=== PATIENT | female | born 1945 | race African-American/Black ===

== ENCOUNTER 2022-09-18 12:07 | Inpatient (IN) | payer BC, OTHER ==
[~2022-09-18] VITALS: Ht 152.4 cm; Wt 60.8 kg
[2022-09-18] MEDS ORDERED: ACETAMINOPHEN 650MG SUPP PR STA (12:21)
[2022-09-18] MEDS ORDERED: VANCOMYCIN 1G PREMIX 200 ML IV ONE (12:30)
[2022-09-18] MEDS ORDERED: PIPERACILLIN/TAZ 3.375G PREMIX 50 ML IV ONE (12:30)
[2022-09-18] MEDS ORDERED: SODIUM CHLORIDE 0.9% 1000ML BAG (SEPSIS BOLUS) IV ONE (12:30)
[2022-09-18 13:27] LABS: BASOPHILS % 0.3 % (0.0-2.0); HEMATOCRIT. 35.6 % (36.0-48.0); HEMOGLOBIN. 11.5 g/dL (12.0-16.0); LYMPHOCYTES % 11.8 % (20.0-50.0); MEAN CORPUSCULAR HEMOGLOBIN 30.8 pg (28.0-32.0); MEAN CORPUSCULAR VOLUME 95.7 fL (81.0-99.0); MEAN PLATELET VOLUME 8.6 fl (7.4-10.4); MONOCYTES % 9.9 % (2.0-8.0); PLATELET 174 x1000/uL (130-400); RED BLOOD CELL COUNT 3.72 mill/uL (4.2-5.4); RED CELL DISTRIBUTION WIDTH 14.7 % (11.6-14.6)
[2022-09-18 13:36] LABS: CHLORIDE 112 mEq/L (98-107)
[2022-09-18 13:54] LABS: CLARITY URINE CLEAR (CLEAR); COLOR URINE DARK YELLOW (YELLOW); KETONES URINE NEGATIVE (NEGATIVE); LEUKOCYTE ESTERASE URINE NEGATIVE (NEGATIVE); NITRITE URINE NEGATIVE (NEGATIVE); OCCULT BLOOD URINE 2+ (NEGATIVE); PROTEIN URINE 1+ (NEGATIVE); SPECIFIC GRAVITY URINE 1.029 (1.005-1.030)
[2022-09-18] MEDS ORDERED: PIPERACILLIN/TAZ 3.375G PREMIX 50 ML IV SCH (17:00)
[2022-09-18] MEDS ORDERED: MAGNESIUM/ALUMINUM HYDROXIDE/SIMETHICONE 30ML UDC PO PRN (17:00)
[2022-09-18] MEDS ORDERED: ACETAMINOPHEN 325MG TABLET PO PRN ×2 (17:00)
[2022-09-18] MEDS ORDERED: NA PHOS,M-B/NA PHOS,DI-BA ENEMA 118ML PR PRN (17:00)
[2022-09-18] MEDS ORDERED: NITROGLYCERIN 0.4MG TABLET SL SL PRN (17:00)
[2022-09-18] MEDS ORDERED: ONDANSETRON HCL 4MG/2ML INJ IV PRN (17:00)
[2022-09-18] MEDS ORDERED: KETOROLAC 15MG/ML VIAL IV PRN (17:00)
[2022-09-18] MEDS ORDERED: CLONIDINE 0.1MG TABLET PO PRN (17:00)
[2022-09-18] MEDS ORDERED: IPRATROPIUM/ALBUTEROL 0.5-3(2.5)MG/3ML NEB NEB PRN (17:00)
[2022-09-18] MEDS ORDERED: ZOLPIDEM TARTRATE 5MG TABLET PO PRN (17:00)
[2022-09-18] MEDS ORDERED: DOCUSATE SODIUM 100MG CAPSULE PO PRN (17:00)
[2022-09-18 17:36] LABS: T4 FREE 1.15 ng/dL (0.76-1.46)
[2022-09-18] MEDS: FAMOTIDINE 20MG TABLET PO SCH (17:56)
[2022-09-18] MEDS: ENOXAPARIN 30MG/0.3ML SYR SUBCUT SCH (17:56)
[2022-09-18] MEDS: LACTATED RINGERS 1,000 ML IV SCH ×2 (17:56→23:32)
[2022-09-18 17:58] LABS: VITAMIN B12 SERUM > 2000.0 pg/mL (211-911)
[2022-09-18 20:00] VITALS: BP 159/86
[2022-09-18 21:55] VITALS: BP 159/86
[2022-09-18] MEDS: PIPERACILLIN/TAZOBACTAM 3.375G in DEXT 5% WATER 50ML IV SCH (23:31)
[2022-09-18] MEDS: ASCORBIC ACID 500 MG TABLET PO SCH (23:32)
[2022-09-19] VITALS: BP 166/98
[2022-09-19 01:10] LABS: CREATINE KINASE MB FRACTION 1.2 ng/mL (0.5-3.6)
[2022-09-19] MEDS ORDERED: MEMA10TA55 PO (03:22)
[2022-09-19] MEDS ORDERED: CRES10 (03:22)
[2022-09-19] MEDS ORDERED: BENA10TA74 PO (03:22)
[2022-09-19] MEDS ORDERED: AMLO5TAB88 PO (03:22)
[2022-09-19] MEDS ORDERED: ROSUVASTATIN (03:22)
[2022-09-19 04:00] VITALS: BP 134/86
[2022-09-19] MEDS: PIPERACILLIN/TAZOBACTAM 3.375G in DEXT 5% WATER 50ML IV SCH ×3 (05:04→22:31)
[2022-09-19 06:58] LABS: BASOPHILS % 0.3 % (0.0-2.0); HEMATOCRIT. 37.3 % (36.0-48.0); HEMOGLOBIN. 12.2 g/dL (12.0-16.0); LYMPHOCYTES % 16.7 % (20.0-50.0); MEAN CORPUSCULAR VOLUME 94.7 fL (81.0-99.0); MEAN PLATELET VOLUME 9.2 fl (7.4-10.4); PLATELET 149 x1000/uL (130-400); RED BLOOD CELL COUNT 3.93 mill/uL (4.2-5.4)
[2022-09-19 07:11] LABS: CHLORIDE 107 mEq/L (98-107)
[2022-09-19 07:20] LABS: CREATINE KINASE 148 IU/L (26-192); CREATINE KINASE MB FRACTION < 1.0 ng/mL (0.5-3.6); PHOSPHORUS 3.5 mg/dL (2.5-4.9)
[2022-09-19 08:00] VITALS: BP 134/64
[2022-09-19] MEDS: ASPIRIN 325MG EC TABLET PO SCH (10:38)
[2022-09-19] MEDS: ASCORBIC ACID 500 MG TABLET PO SCH ×2 (10:38→22:30)
[2022-09-19] MEDS: ZINC SULFATE 220 MG ( 50 ) CAPSULE PO SCH (10:38)
[2022-09-19 12:00] VITALS: BP 126/84
[2022-09-19 12:13] LABS: *AMPHETAMINES SCREEN URINE NEGATIVE (NEGATIVE); *BARBITURATES SCREEN URINE NEGATIVE (NEGATIVE); *BENZODIAZEPINES SCREEN URINE NEGATIVE (NEGATIVE); *COCAINE SCREEN URINE NEGATIVE (NEGATIVE); CANNABINOID URINE SCREEN NEGATIVE (NEGATIVE); METHADONE URINE SCREEN NEGATIVE (NEGATIVE); OPIATES URINE SCREEN NEGATIVE (NEGATIVE); PHENCYCLIDINE URINE SCREEN NEGATIVE (NEGATIVE)
[2022-09-19] MEDS: VANCOMYCIN 750MG PREMIX 150 ML IV SCH (13:25)
[2022-09-19] MEDS: LACTATED RINGERS 1,000 ML IV SCH ×2 (13:26→22:31)
[2022-09-19] MEDS ORDERED: ALBUTEROL 6.7GM HFA INHALER ORI PRN (17:00)
[2022-09-19] MEDS: FAMOTIDINE 20MG TABLET PO SCH (17:58)
[2022-09-19] MEDS: ENOXAPARIN 30MG/0.3ML SYR SUBCUT SCH (17:58)
[2022-09-19 20:00] VITALS: BP 146/72
[2022-09-19] MEDS: GUAIFENESIN 600MG ER TABLET PO SCH (22:30)
[2022-09-20] VITALS: BP 132/89
[2022-09-20 04:00] VITALS: BP 109/81
[2022-09-20] MEDS: PIPERACILLIN/TAZOBACTAM 3.375G in DEXT 5% WATER 50ML IV SCH ×3 (06:17→21:44)
[2022-09-20 08:00] VITALS: BP 131/74
[2022-09-20 08:56] LABS: BG BASE EXCESS 2.4 mmol/L (-2.0-2.0); BG CARBOXYHEMOGLOBIN 0.3 % (0.5-1.5); BG DEOXYHEMOGLOBIN 1.2 % (0.0-5.0); BG HCO3 ACT 25.7 mmol/L (22.0-26.0); BG METHEMOGLOBIN 0.4 % (0.0-1.5); BG OXYGEN SATURATION 98.8 % (92.0-98.5); BG OXYHEMOGLOBIN 98.1 % (94.0-97.0); BG PH 7.497 (7.350-7.450); BG PO2 141.5 mmHg (75.0-100.0); BG SAMPLE SITE RIGHT RADIAL; BG TOTAL HEMOGLOBIN 7.3 g/dL (12.0-18.0); BG VENT MODE NASAL CANNULA
[2022-09-20] MEDS: GUAIFENESIN 600MG ER TABLET PO SCH ×2 (09:24→21:44)
[2022-09-20] MEDS: DONEPEZIL HCL 10MG TABLET PO SCH (09:24)
[2022-09-20] MEDS: ZINC SULFATE 220 MG ( 50 ) CAPSULE PO SCH (09:24)
[2022-09-20] MEDS: ASCORBIC ACID 500 MG TABLET PO SCH ×2 (09:25→21:44)
[2022-09-20] MEDS: ASPIRIN 325MG EC TABLET PO SCH (09:25)
[2022-09-20] MEDS: MEMANTINE HCL 10MG TABLET PO SCH ×2 (09:25→21:44)
[2022-09-20] MEDS: LACTATED RINGERS 1,000 ML IV SCH ×2 (09:25→19:00)
[2022-09-20 12:00] VITALS: BP 115/73
[2022-09-20 16:00] VITALS: BP 108/65
[2022-09-20] MEDS: VANCOMYCIN 750MG PREMIX 150 ML IV SCH (16:11)
[2022-09-20] MEDS: ENOXAPARIN 30MG/0.3ML SYR SUBCUT SCH (16:25)
[2022-09-20 20:00] VITALS: BP 126/64
[2022-09-20] MEDS: ATORVASTATIN CALCIUM 20MG TABLET PO SCH (21:44)
[2022-09-20] MEDS: FAMOTIDINE 20MG TABLET PO SCH (21:44)
[2022-09-21] VITALS: BP 141/92
[2022-09-21 04:00] VITALS: BP 128/65
[2022-09-21] MEDS: LACTATED RINGERS 1,000 ML IV SCH ×2 (05:00→15:52)
[2022-09-21] MEDS: PIPERACILLIN/TAZOBACTAM 3.375G in DEXT 5% WATER 50ML IV SCH ×3 (06:00→22:00)
[2022-09-21 08:08] VITALS: BP 122/67
[2022-09-21] MEDS: GUAIFENESIN 600MG ER TABLET PO SCH ×2 (09:16→20:36)
[2022-09-21] MEDS: DONEPEZIL HCL 10MG TABLET PO SCH (09:16)
[2022-09-21] MEDS: ASPIRIN 325MG EC TABLET PO SCH (09:16)
[2022-09-21] MEDS: ZINC SULFATE 220 MG ( 50 ) CAPSULE PO SCH (09:16)
[2022-09-21] MEDS: ASCORBIC ACID 500 MG TABLET PO SCH ×2 (09:16→20:45)
[2022-09-21] MEDS: MEMANTINE HCL 10MG TABLET PO SCH ×2 (09:16→20:35)
[2022-09-21 12:00] VITALS: BP 96/58
[2022-09-21] MEDS: VANCOMYCIN 1G PREMIX 200 ML IV SCH (12:03)
[2022-09-21 13:46] LABS: BG BASE EXCESS 3.4 mmol/L (-2.0-2.0); BG CARBOXYHEMOGLOBIN 0.3 % (0.5-1.5); BG DEOXYHEMOGLOBIN 4.4 % (0.0-5.0); BG FRACTION INSPIRED OXYGEN 21; BG HCO3 ACT 26.6 mmol/L (22.0-26.0); BG METHEMOGLOBIN 0.3 % (0.0-1.5); BG OXYGEN SATURATION 95.6 % (92.0-98.5); BG PCO2 35.6 mmHg (35.0-45.0); BG PH 7.492 (7.350-7.450); BG PO2 74.7 mmHg (75.0-100.0); BG SAMPLE SITE RIGHT BRACHIAL; BG TOTAL HEMOGLOBIN 11.6 g/dL (12.0-18.0); BG VENT MODE ROOM AIR
[2022-09-21 16:18] VITALS: BP 105/57
[2022-09-21] MEDS: FAMOTIDINE 20MG TABLET PO SCH (17:34)
[2022-09-21] MEDS: ENOXAPARIN 30MG/0.3ML SYR SUBCUT SCH (17:34)
[2022-09-21 20:00] VITALS: BP 117/71
[2022-09-21] MEDS: ATORVASTATIN CALCIUM 20MG TABLET PO SCH (20:36)
[2022-09-21] MEDS: GUAIFENESIN 200MG/10ML SUGAR FREE UDC PO PRN (20:45)
[2022-09-22] VITALS: BP 163/94
[2022-09-22] MEDS: LACTATED RINGERS 1,000 ML IV SCH ×3 (01:00→20:01)
[2022-09-22 04:00] VITALS: BP 131/72
[2022-09-22] MEDS: PIPERACILLIN/TAZOBACTAM 3.375G in DEXT 5% WATER 50ML IV SCH ×3 (06:00→20:02)
[2022-09-22] MEDS: VANCOMYCIN 1G PREMIX 200 ML IV SCH (06:00)
[2022-09-22 07:53] VITALS: BP 122/72
[2022-09-22 07:54] LABS: CHLORIDE 104 mEq/L (98-107)
[2022-09-22] MEDS: ASPIRIN 325MG EC TABLET PO SCH (09:24)
[2022-09-22] MEDS: ASCORBIC ACID 500 MG TABLET PO SCH ×2 (09:25→20:04)
[2022-09-22] MEDS: GUAIFENESIN 600MG ER TABLET PO SCH ×2 (09:25→20:04)
[2022-09-22] MEDS: MEMANTINE HCL 10MG TABLET PO SCH ×2 (09:25→20:04)
[2022-09-22] MEDS: DONEPEZIL HCL 10MG TABLET PO SCH (09:25)
[2022-09-22] MEDS: ZINC SULFATE 220 MG ( 50 ) CAPSULE PO SCH (09:25)
[2022-09-22] MEDS ORDERED: LIDOCAINE HCL/PF 1% 10 MG/ML 5ML VIAL ONE (10:23)
[2022-09-22 12:00] VITALS: BP 119/68
[2022-09-22 16:00] VITALS: BP 133/77
[2022-09-22] MEDS: ENOXAPARIN 30MG/0.3ML SYR SUBCUT SCH (17:40)
[2022-09-22] MEDS: FAMOTIDINE 20MG TABLET PO SCH (17:40)
[2022-09-22 20:00] VITALS: BP 133/87
[2022-09-22] MEDS: GUAIFENESIN 200MG/10ML SUGAR FREE UDC PO PRN (20:04)
[2022-09-22] MEDS: ATORVASTATIN CALCIUM 20MG TABLET PO SCH (20:05)
[2022-09-23] VITALS: BP 123/76
[2022-09-23] MEDS: VANCOMYCIN 1G PREMIX 200 ML IV SCH
[2022-09-23 04:00] VITALS: BP 117/70
[2022-09-23] MEDS: PIPERACILLIN/TAZOBACTAM 3.375G in DEXT 5% WATER 50ML IV SCH ×2 (05:05→14:31)
[2022-09-23] MEDS: ZINC SULFATE 220 MG ( 50 ) CAPSULE PO SCH (09:39)
[2022-09-23] MEDS: ASPIRIN 325MG EC TABLET PO SCH (09:39)
[2022-09-23] MEDS: ASCORBIC ACID 500 MG TABLET PO SCH ×2 (09:39→21:27)
[2022-09-23] MEDS: MEMANTINE HCL 10MG TABLET PO SCH ×2 (09:39→21:28)
[2022-09-23] MEDS: GUAIFENESIN 200MG/10ML SUGAR FREE UDC PO PRN (09:39)
[2022-09-23] MEDS: DONEPEZIL HCL 10MG TABLET PO SCH (09:39)
[2022-09-23] MEDS ORDERED: AZIT500T8 MT (11:19)
[2022-09-23 12:00] VITALS: BP 134/74
[2022-09-23] MEDS ORDERED: VANCOMYCIN 1G PREMIX 200 ML IV SCH (13:00)
[2022-09-23 13:22] VITALS: BP 134/74
[2022-09-23] MEDS: LACTATED RINGERS 1,000 ML IV SCH ×3 (14:32→21:28)
[2022-09-23 16:00] VITALS: BP 132/74
[2022-09-23] MEDS: ENOXAPARIN 30MG/0.3ML SYR SUBCUT SCH (17:38)
[2022-09-23] MEDS: FAMOTIDINE 20MG TABLET PO SCH (17:38)
[2022-09-23 18:41] LABS: CHLORIDE 109 mEq/L (98-107)
[2022-09-23 20:00] VITALS: BP 103/73
[2022-09-23] MEDS: ATORVASTATIN CALCIUM 20MG TABLET PO SCH (21:27)
[2022-09-23] MEDS: GUAIFENESIN 600MG ER TABLET PO SCH (21:28)
[2022-09-24] VITALS: BP 149/89
[2022-09-24 04:00] VITALS: BP 134/81
[2022-09-24 08:00] VITALS: BP 139/70
[2022-09-24] MEDS: GUAIFENESIN 600MG ER TABLET PO SCH (09:00)
[2022-09-24] MEDS: ZINC SULFATE 220 MG ( 50 ) CAPSULE PO SCH (09:35)
[2022-09-24] MEDS: ASCORBIC ACID 500 MG TABLET PO SCH (09:35)
[2022-09-24] MEDS: DONEPEZIL HCL 10MG TABLET PO SCH (09:35)
[2022-09-24] MEDS: MEMANTINE HCL 10MG TABLET PO SCH (09:35)
[2022-09-24] MEDS: ASPIRIN 325MG EC TABLET PO SCH (09:35)
[2022-09-24] MEDS: GUAIFENESIN 200MG/10ML SUGAR FREE UDC PO PRN (09:35)
[2022-09-24] MEDS ORDERED: POTASSIUM CHLORIDE 20MEQ/PACKET PO NR (10:30)
[2022-09-24 12:00] VITALS: BP 148/84
[2022-09-24] MEDS ORDERED: KCL 20MEQ/100ML PREMIX 100 ML IV SCH (13:00)
[2022-09-24] MEDS: LACTATED RINGERS 1,000 ML IV SCH (13:30)
[2022-09-24 14:53] VITALS: BP 148/84
== END 2022-09-24 16:30 | disposition home or self-care (01) | DRG 871 ==
LOC: ER 12:07 → 7EST 16:52 → SUPCPDRO 17:25 → 7EST 21:47
PROVIDERS: ADMIT Internal Medicine; ATTEND Internal Medicine
PROC: 05HY33Z Insertion of Infusion Device into Upper Vein, Percutaneous Approach (ICD-10-PCS; principal; 2022-09-22)
PROC: B54MZZA Ultrasonography of Right Upper Extremity Veins, Guidance (ICD-10-PCS; 2022-09-22)
PROC: 05HY33Z Insertion of Infusion Device into Upper Vein, Percutaneous Approach (ICD-10-PCS; 2022-09-23)
PROC: B54MZZA Ultrasonography of Right Upper Extremity Veins, Guidance (ICD-10-PCS; 2022-09-23)
DX: A41.89 Other specified sepsis (principal); G92.8 Other toxic encephalopathy; J12.82 Pneumonia due to coronavirus disease 2019; U07.1 COVID-19; J96.01 Acute respiratory failure with hypoxia; E87.0 Hyperosmolality and hypernatremia; E44.1 Mild protein-calorie malnutrition; E87.1 Hypo-osmolality and hyponatremia; E87.21 Acute metabolic acidosis; J44.0 Chronic obstructive pulmonary disease with (acute) lower respiratory infection; J98.11 Atelectasis; R65.20 Severe sepsis without septic shock; G20 Parkinson's disease; D63.8 Anemia in other chronic diseases classified elsewhere; E78.5 Hyperlipidemia, unspecified; E86.0 Dehydration; F02.80 Dementia in other diseases classified elsewhere, unspecified severity, without behavioral disturbance, psychotic disturbance, mood disturbance, and anxiety; I10 Essential (primary) hypertension; Z79.899 Other long term (current) drug therapy; G30.9 Alzheimer's disease, unspecified
CPT/HCPCS: 36415; 36573; 36600; 71045; 80048; 80053; 80061; 80202; 80305; 81003; 82375; 82550; 82553; 82607; 82746; 82805; 83036; 83540; 83550; 83605; 83735; 84100; 84145; 84439; 84443; 84484; 85025; 87426; 87804; 93005; 93970; 99285; C1725; C1893; C9803; J1650; J2543; J3370; J3480; J3490; J7030; J7060; A4315